=== PATIENT | male | born 1990 | race African-American/Black ===

== ENCOUNTER 2018-05-14 15:30 | Emergency (ER) | payer MEDICAID ==
[~2018-05-14] VITALS: Ht 177.8 cm; Wt 77.0 kg
[2018-05-14 17:20] LABS: BASOPHILS % 0.5 % (0.0-2.0); EOSINOPHILS % 0.7 % (0.0-5.0); HEMATOCRIT. 43.1 % (42.0-52.0); HEMOGLOBIN. 14.1 g/dL (14.0-18.0); LYMPHOCYTES % 13.2 % (20.0-50.0); MEAN CORPUSCULAR HEMOGLOBIN 25.6 pg (28.0-32.0); MEAN CORPUSCULAR VOLUME 78.1 fL (80.0-94.0); MEAN PLATELET VOLUME 9.5 fl (7.4-10.4); MONOCYTES % 12.6 % (2.0-8.0); PLATELET 145 x1000/uL (130-400); RED BLOOD CELL COUNT 5.53 mill/uL (4.7-6.1); RED CELL DISTRIBUTION WIDTH 15.5 % (11.6-14.6)
[2018-05-14 17:22] LABS: CHLORIDE 106 mEq/L (98-107)
[2018-05-14] MEDS ORDERED: IBUPROFEN 600MG TABLET PO ONE (19:30)
[2018-05-14 20:09] VITALS: BP 135/92
== END 2018-05-14 21:45 | disposition left against medical advice (07) ==
LOC: ER 15:30
DX: Z53.21 Procedure and treatment not carried out due to patient leaving prior to being seen by health care provider (principal); F17.200 Nicotine dependence, unspecified, uncomplicated
CPT/HCPCS: 36415; 76870; 93976

== ENCOUNTER 2018-05-14 22:56 | Emergency (ER) | payer MEDICAID ==
[~2018-05-14] VITALS: Ht 177.8 cm; Wt 87.0 kg
[2018-05-14] MEDS ORDERED: CEFTRIAXONE SODIUM 250 MG/VIAL IM ONE (23:45)
[2018-05-14] MEDS ORDERED: AZITHROMYCIN 500 MG TABLET PO ONE (23:45)
[2018-05-15] MEDS ORDERED: DOXYCYCLINE HYCLATE 100MG CAPSULE PO ONE
[2018-05-15 01:03] VITALS: BP 127/71
[2018-05-17 04:14] LABS: CHLAMYDIA TRACHOMATIS NAA Positive (Negative); NEISSERIA GONORRHOEAE NAA Positive (Negative)
== END 2018-05-15 01:23 | disposition home or self-care (01) ==
LOC: ER 22:56
DX: N45.2 Orchitis (principal); F17.200 Nicotine dependence, unspecified, uncomplicated
CPT/HCPCS: 87491; 87591; 96372; 99283; J0696